=== PATIENT | female | born 1955 | race Caucasian/White ===

== ENCOUNTER 2019-09-15 09:56 | Emergency (ER) | payer MEDICAID ==
[~2019-09-15] VITALS: Ht 182.9 cm; Wt 109.3 kg
[2019-09-15 10:11] VITALS: BP 154/71; Ht 182.9 cm; Wt 109.3 kg
== END 2019-09-15 13:35 | disposition left against medical advice (07) ==
LOC: ED 09:56
DX: M54.16 Radiculopathy, lumbar region (principal); E11.9 Type 2 diabetes mellitus without complications; I10 Essential (primary) hypertension; E78.00 Pure hypercholesterolemia, unspecified; E66.9 Obesity, unspecified; Z68.32 Body mass index [BMI] 32.0-32.9, adult

== ENCOUNTER → 2019-10-06 | Outpatient (CLI) | payer MEDICAID ==
[2019-10-06 09:39] LABS: BASOPHIL % 0.3 % (0-2); PLATELET COUNT 317 x10^3mcL (130-400)
[2019-10-06 09:47] LABS: RED CELL DISTRIBUTION WIDTH 15.8 % (11.5-14.5)
[2019-10-06 10:08] LABS: ALKALINE PHOSPHATASE 94 U/L (46-116); ALT/SGPT 22 U/L (14-59); AST/SGOT 11 U/L (15-37); BILIRUBIN TOTAL 0.38 mg/dL (0.20-1.00); CALCIUM 9.1 mg/dL (8.5-10.1); CHLORIDE SERUM 106 mmol/L (98-107); CHOLESTEROL 172 mg/dL (<200); CHOLESTEROL/HDL RATIO 3.1; CREATININE SERUM 0.5 mg/dL (0.6-1.0); GFR1 > 60 mL/min; GLUCOSE SERUM 90 mg/dL (74-106); HDL CHOLESTEROL 56 mg/dL (40-60); POTASSIUM SERUM 3.9 mmol/L (3.5-5.1); SODIUM SERUM 143 mmol/L (136-145); TOTAL PROTEIN, SERUM 7.8 g/dL (6.4-8.2)
[2019-10-06 11:01] LABS: ALBUMIN 3.3 g/dL (3.4-5.0); TRIGLYCERIDES 90 mg/dL (<150)
== END | disposition home or self-care (01) ==
LOC: RD 08:45
PROVIDERS: General Practice
DX: M54.5 Low back pain (principal); I10 Essential (primary) hypertension

== ENCOUNTER 2020-02-06 07:18 | Emergency (ER) | payer OTHER ==
[~2020-02-06] VITALS: Ht 167.6 cm; Wt 105.2 kg
[2020-02-06 07:22] VITALS: Ht 167.6 cm; Wt 105.2 kg
[2020-02-06 10:01] VITALS: BP 160/81
== END 2020-02-06 10:01 | disposition home or self-care (01) ==
LOC: ED 07:18
DX: S01.511A Laceration without foreign body of lip, initial encounter (principal); S01.21XA Laceration without foreign body of nose, initial encounter; I10 Essential (primary) hypertension; E11.9 Type 2 diabetes mellitus without complications; E78.00 Pure hypercholesterolemia, unspecified; W10.9XXA Fall (on) (from) unspecified stairs and steps, initial encounter; Y93.89 Activity, other specified; Y92.89 Other specified places as the place of occurrence of the external cause; Y99.8 Other external cause status
CPT/HCPCS: 90715; J2001